=== PATIENT | female | born 2000 | race American Indian/Alaskan Native ===

== ENCOUNTER 2020-06-03 18:39 | Emergency (ER) | payer SELFPAY ==
[2020-06-03] MEDS ORDERED: diphenhydrAMINE 50 MG/ML VIAL IV STA (18:41)
[2020-06-03] MEDS ORDERED: SODIUM CHLORIDE 0.9% 1000 ML 1,000 ML IV ONE (18:41)
[2020-06-03] MEDS ORDERED: FAMOTIDINE 20 MG/2 ML INJ IV ONE (18:42)
[2020-06-03] MEDS ORDERED: dexAMETHasone 20 MG/5 ML VIAL IV ONE (18:42)
--- NOTE | 2020-06-03 18:47 | Emergency Department Report ---
ED Allergic Reaction HPI - General Stated complaint: INSECT STING Time Seen by Provider: 06/03/20 18:41 - History of Present Illness Initial Comments: 19-year-old female presents to the emergency department status post yellowjacket sting to the left lower aspect of her neck of her neck resulting in local pain stinging and irritation. She reports having a tingly chilly sensation over her body but does not have a known allergy to the insect as of her son ever being stung. She reports no shortness of breath no wheezing no chest pain she reports no new no vomiting reports no fever she reports no lip tingling she reports no odynophagia she reports no dysphagia. Symptoms: itching Severity: mild Treatment Prior to Arrival: none Previous Allergy History: none - Related Data Allergies Allergy/AdvReac Type Severity Reaction Status Date / Time No Known Allergies Allergy Unverified 06/03/20 19:01 ED Review of Systems ROS: Stated complaint: INSECT STING Other details as noted in HPI Comment: All other systems reviewed and negative ED Physical Exam - General General appearance: alert, in no apparent distress - Head Head exam: Present: atraumatic, normocephalic - Eye Eye exam: Present: normal appearance - ENT ENT exam: Present: mucous membranes moist, other (Airway patent tongue and uvula are midline no edema no signs of any angioedema normal voice no drooling) - Neck Neck exam: Present: normal inspection, tenderness - Expanded Neck Exam Expanded Neck exam: Absent: thyroid mass, carotid bruit, tracheal deviation 1 - Insect bite sting area with redness to that region - Respiratory Respiratory exam: Present: normal lung sounds bilaterally. Absent: respiratory distress, wheezes, rales, chest wall tenderness, accessory muscle use - Cardiovascular Cardiovascular Exam: Present: regular rate, normal rhythm. Absent: systolic murmur, diastolic murmur, rubs, gallop - GI/Abdominal GI/Abdominal exam: Present: soft, normal bowel sounds - Extremities Exam Extremities exam: Present: normal inspection, normal capillary refill - Back Exam Back exam: Present: normal inspection. Absent: CVA tenderness (R), CVA tenderness (L) - Neurological Exam Neurological exam: Present: alert, oriented X3, CN II-XII intact, normal gait - Psychiatric Psychiatric exam: Present: normal affect, normal mood - Skin Skin exam: Present: warm, dry, intact, erythema. Absent: normal color (Local redness and pain to the area of the sting), rash, cyanosis, diaphoretic ED Course Vital Signs 06/03/20 06/03/20 06/03/20 19:00 20:25 21:24 Temperature 98 F 97.9 F Pulse Rate 70 68 Respiratory 22 18 16 Rate Blood Pressure 123/82 110/67 [Right] O2 Sat by Pulse 97 98 Oximetry - Consultations Consultation #1: 19-year-old female status post yellowjacket sting has been improving since her hospital stay the case was passed off to the attending Dr. José Miguel Leong please see his note for more detail Critical care attestation.: If time is entered above; I have spent that time in minutes in the direct care of this critically ill patient, excluding procedure time. ED Disposition Clinical Impression: Bee sting reaction Disposition: DC-01 TO HOME OR SELFCARE Is pt being admited?: No Does the pt Need Aspirin: No Condition: Stable
[2020-06-03] MEDS ORDERED: oxyCODONE /ACETAMINOPHEN 5-325MG TAB ONE (20:07)
[2020-06-03] MEDS ORDERED: oxyCODONE /ACETAMINOPHEN 5-325MG TAB PO ONE (20:24)
[2020-06-03 21:25] VITALS: BP 110/67
--- NOTE | 2020-06-03 21:39 | Emergency Department Report ---
ED General Adult HPI - General Chief complaint: Allergic Reaction Stated complaint: INSECT STING Time Seen by Provider: 06/03/20 18:41 Source: patient Mode of arrival: Ambulatory Limitations: No Limitations - History of Present Illness Initial comments: The patient presents to the emergency department with a chief complaint of allergic reaction. Patient states she was at the nail salon getting her nails done today when she was bit by either a bee or a wasp. She states she was stung on her neck. This occurred around 6 PM today. Patient states that she began to have some difficulty swallowing and has significant pain in her neck. She initially went to urgent care but was told to come to the emergency department. Patient states now that she is able to swallow without any issue and feels like the swelling has resolved. -: Sudden Severity scale (0 -10): 1 Consistency: now resolved Improves with: medication Worsens with: none Associated Symptoms: denies other symptoms Treatments Prior to Arrival: none - Related Data Previous Rx's Medication Instructions Recorded Last Taken Type EPINEPHrine [Epipen 2-Nestor] 0.3 mg IJ ONCE #1 auto.injct 06/03/20 Unknown Rx predniSONE [Deltasone] 20 mg PO DAILY #15 tablet 06/03/20 Unknown Rx Allergies Allergy/AdvReac Type Severity Reaction Status Date / Time No Known Allergies Allergy Unverified 06/03/20 19:01 ED Review of Systems ROS: Stated complaint: INSECT STING Other details as noted in HPI Comment: All other systems reviewed and negative Constitutional: denies: chills, fever Eyes: denies: eye pain, eye discharge, vision change ENT: denies: ear pain, throat pain Respiratory: denies: cough, shortness of breath, wheezing Cardiovascular: denies: chest pain, palpitations Endocrine: no symptoms reported Gastrointestinal: denies: abdominal pain, nausea, diarrhea Genitourinary: denies: urgency, dysuria, discharge Musculoskeletal: denies: back pain, joint swelling, arthralgia Skin: denies: rash, lesions Neurological: denies: headache, weakness, paresthesias Psychiatric: denies: anxiety, depression Hematological/Lymphatic: denies: easy bleeding, easy bruising ED Past Medical Hx - Social History Smoking Status: Never Smoker Substance Use Type: None - Medications Home Medications: Home Medications Medication Instructions Recorded Confirmed Last Taken Type EPINEPHrine [Epipen 2-Nestor] 0.3 mg IJ ONCE #1 auto.injct 06/03/20 Unknown Rx predniSONE [Deltasone] 20 mg PO DAILY #15 tablet 06/03/20 Unknown Rx ED Physical Exam - General Limitations: No Limitations General appearance: alert, in no apparent distress - Head Head exam: Present: atraumatic, normocephalic - Eye Eye exam: Present: normal appearance, PERRL, EOMI - ENT ENT exam: Present: mucous membranes moist - Neck Neck exam: Present: normal inspection - Respiratory Respiratory exam: Present: normal lung sounds bilaterally. Absent: respiratory distress - Cardiovascular Cardiovascular Exam: Present: regular rate, normal rhythm. Absent: systolic murmur, diastolic murmur, rubs, gallop - GI/Abdominal GI/Abdominal exam: Present: soft, normal bowel sounds. Absent: distended, tenderness - Extremities Exam Extremities exam: Present: normal inspection - Back Exam Back exam: Present: normal inspection - Neurological Exam Neurological exam: Present: alert, oriented X3, CN II-XII intact. Absent: motor sensory deficit - Psychiatric Psychiatric exam: Present: normal affect, normal mood - Skin Skin exam: Present: warm, dry, intact, normal color. Absent: rash ED Course Vital Signs 06/03/20 06/03/20 06/03/20 19:00 20:25 21:24 Temperature 98 F 97.9 F Pulse Rate 70 68 Respiratory 22 18 16 Rate Blood Pressure 123/82 110/67 [Right] O2 Sat by Pulse 97 98 Oximetry ED Medical Decision Making - Medical Decision Making Patient given IV steroids, IV Benadryl, IV Pepcid Discussed plan of care with patient Critical care attestation.: If time is entered above; I have spent that time in minutes in the direct care of this critically ill patient, excluding procedure time. ED Disposition Clinical Impression: Bee sting reaction Disposition: DC-01 TO HOME OR SELFCARE Is pt being admited?: No Does the pt Need Aspirin: No Condition: Stable Instructions: Bee, Wasp, or Hornet Sting, Adult Additional Instructions: return if worse Prescriptions: predniSONE [Deltasone] 20 mg PO DAILY #15 tablet EPINEPHrine [Epipen 2-Nestor] 0.3 mg IJ ONCE #1 auto.injct Referrals: DONALD DARNELL MD [Staff Physician] - 3-5 Days ABE HOPE MD [Staff Physician] - 3-5 Days Time of Disposition: 22:03
== END 2020-06-03 22:15 | disposition home or self-care (01) ==
LOC: ED 18:39
DX: T78.40XA Allergy, unspecified, initial encounter (principal); Z79.899 Other long term (current) drug therapy; W57.XXXA Bitten or stung by nonvenomous insect and other nonvenomous arthropods, initial encounter; Y93.89 Activity, other specified; Y92.89 Other specified places as the place of occurrence of the external cause; Y99.8 Other external cause status
CPT/HCPCS: 96361; 96374; 96375; 99283; J1100; J1200; J7030